=== PATIENT | female | born 1985 | race Caucasian/White ===

== ENCOUNTER 2019-01-05 12:40 | Emergency (ER) | payer SELFPAY ==
[~2019-01-05] VITALS: Ht 160 cm; Wt 52.6 kg
--- NOTE | 2019-01-05 12:58 | NUR ---
Patient to bed 5. RN evaluating patient at bedside.
[2019-01-05 12:59] VITALS: BP 118/69
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
--- NOTE | 2019-01-05 13:40 | NUR ---
PATIENT LEFT WITHOUT BEING SEEN BY DR. ADAMS. NO FURTHER CARE PROVIDED FOR PATIENT.
== END 2019-01-05 13:40 | disposition left against medical advice (07) ==
LOC: MED 12:40
DX: M79.671 Pain in right foot (principal); M54.9 Dorsalgia, unspecified; Z53.21 Procedure and treatment not carried out due to patient leaving prior to being seen by health care provider; Z98.890 Other specified postprocedural states